=== PATIENT | female | born 1985 | race Caucasian/White ===

== ENCOUNTER 2020-12-11 10:39 | Outpatient (REF) | payer OTHER, SELFPAY ==
[2020-12-11 10:44] LABS: MANUAL DIFF FLAG NO
[2020-12-11 11:10] LABS: Basophils Absolute Auto 0.1 X10*3/uL (0.0-0.2); Basophils Percent Auto 0.7 % (0-2); Eosinophils Absolute Auto 0.2 X10*3/uL (0.0-0.4); Hematocrit 44.5 % (37.0-47.0); Hemoglobin 15.1 g/dl (12.0-16.0); Imm Gran Abs Auto 0.03 X10*3/uL (0.00-0.03); Imm Gran Pct Auto 0.4 % (0.0-0.4); Lymphocytes Absolute Auto 1.6 X10*3/uL (1.2-4.9); Lymphocytes Percent Auto 22.6 % (20-40); Mean Corpuscular HGB Conc 33.9 g/dl (31.0-35.0); Mean Corpuscular Hemoglobin 30.2 pg (27.0-33.0); Monocytes Absolute Auto 0.6 X10*3/uL (0.1-1.2); Monocytes Percent Auto 8.1 % (2-11); Neutrophils Absolute Auto 4.52 x10*3/uL (2.0-8.3); Neutrophils Percent Auto 65.2 % (45-73); Platelet Count 253 X10*3/uL (160-400); Red Cell Distribution Width 12.4 % (11.0-16.0); White Blood Count 6.9 X10*3/uL (4.8-10.8)
[2020-12-11 11:15] LABS: Appearance Urine HAZY; Color Urine YELLOW; Glucose Urine UA NEG (NEG); Leukocyte Esterase Urine NEG (NEG); Nitrite Urine NEG (NEG); Specific Gravity - Urine >= 1.030 (1.005-1.025); Urine Blood NEG (NEG); Urine Ketones NEG (NEG); Urine Protein NEG (NEG-TRACE)
[2020-12-11 11:27] LABS: Alanine Aminotransferase 27 U/L (0-31); Albumin Level 4.4 g/dL (3.5-5.0); Alkaline Phosphatase 77 U/L (39-117); Anion Gap 9 (12-20); Aspartate Amino Transferase 24 U/L (5-31); Bilirubin Total 0.3 mg/dL (0.0-1.0); Blood Urea Nitrogen 13 mg/dL (9-16); Calcium 8.9 mg/dL (8.4-10.2); Carbon Dioxide 28 mmol/L (22-29); Chloride 107 mmol/L (96-108); Cholesterol 148 mg/dL; Estimated Glomerular Filt Rate > 60; Glucose Fasting 101 mg/dL (60-99); HDL Cholesterol 41 mg/dL; LDL Cholesterol Calculated 89 mg/dl; Potassium 4.2 mmol/L (3.3-5.1); Sodium 140 mmol/L (135-145); Total Protein 6.7 g/dL (6.5-8.0); Triglycerides 94 mg/dL
== END 2020-12-11 10:40 | disposition home or self-care (01) ==
LOC: HO.LNP 10:39
PROVIDERS: Visit Provider Internal Medicine
DX: Z00.00 Encounter for general adult medical examination without abnormal findings (principal); E01.0 Iodine-deficiency related diffuse (endemic) goiter
CPT/HCPCS: 80053; 80061; 81003; 84443; 85025

== ENCOUNTER 2021-12-29 11:55 | Outpatient (REF) | payer OTHER, SELFPAY ==
[2021-12-29 11:59] LABS: MANUAL DIFF FLAG NO
[2021-12-29 12:23] LABS: Basophils Absolute Auto 0.1 X10*3/uL (0.0-0.2); Eosinophils Absolute Auto 0.2 X10*3/uL (0.0-0.4); Eosinophils Percent Auto 2.9 % (0-4); Hematocrit 43.5 % (37.0-47.0); Hemoglobin 14.6 g/dl (12.0-16.0); Imm Gran Abs Auto 0.01 X10*3/uL (0.00-0.03); Imm Gran Pct Auto 0.2 % (0.0-0.4); Lymphocytes Absolute Auto 1.7 X10*3/uL (1.2-4.9); Lymphocytes Percent Auto 27.9 % (20-40); Mean Corpuscular HGB Conc 33.6 g/dl (31.0-35.0); Mean Corpuscular Hemoglobin 29.7 pg (27.0-33.0); Mean Corpuscular Volume 88.6 fL (80.0-98.0); Mean Platelet Volume 12.2 fL (9.4-12.3); Monocytes Absolute Auto 0.5 X10*3/uL (0.1-1.2); Monocytes Percent Auto 8.5 % (2-11); Neutrophils Absolute Auto 3.7 x10*3/uL (2.0-8.3); Neutrophils Percent Auto 59.5 % (45-73); Platelet Count 245 X10*3/uL (160-400); Red Blood Count 4.91 X10*6/uL (4.20-5.50); Red Cell Distribution Width 12.4 % (11.0-16.0); White Blood Count 6.2 X10*3/uL (4.8-10.8)
[2021-12-29 12:40] LABS: Alanine Aminotransferase 18 U/L (0-31); Albumin Level 4.4 g/dL (3.5-5.0); Alkaline Phosphatase 61 U/L (39-117); Anion Gap 13 (12-20); Appearance Urine Clear; Aspartate Amino Transferase 16 U/L (5-31); Bilirubin Total 0.4 mg/dL (0.0-1.0); Blood Urea Nitrogen 12 mg/dL (9-16); Calcium 9.1 mg/dL (8.4-10.2); Carbon Dioxide 24 mmol/L (22-29); Chloride 106 mmol/L (96-108); Cholesterol 182 mg/dL; Color Urine Yellow; Estimated Glomerular Filt Rate > 60; Glucose Fasting 98 mg/dL (60-99); Glucose Urine UA Negative (Negative); HDL Cholesterol 43 mg/dL; LDL Cholesterol Calculated 113 mg/dl; Leukocyte Esterase Urine Negative (Negative); Nitrite Urine Negative (Negative); Potassium 4.1 mmol/L (3.3-5.1); Sodium 139 mmol/L (135-145); Total Protein 6.8 g/dL (6.5-8.0); Triglycerides 134 mg/dL; Urine Blood Negative (Negative); Urine Ketones Negative (Negative); Urine Protein Negative (Neg-Trace)
[2021-12-29 12:44] LABS: Bacteria Urine None Seen (None Seen); Hyaline Casts Urine 0-2 /LPF (0-2); RBC Urine 0-2 /HPF (0-2); WBC Urine 0-5 /HPF (0-5)
[2021-12-29 12:55] LABS: TSH reflex Free T4 4.27 uIU/mL (0.32-4.0)
[2021-12-29 13:38] LABS: Free T4 (Free Thyroxine) 0.88 ng/dL (0.71-1.85)
== END 2021-12-29 11:56 | disposition home or self-care (01) ==
LOC: HO.LNP 11:55
PROVIDERS: Visit Provider Internal Medicine
DX: Z00.00 Encounter for general adult medical examination without abnormal findings (principal); E01.0 Iodine-deficiency related diffuse (endemic) goiter
CPT/HCPCS: 80053; 80061; 81001; 84439; 84443; 85025

== ENCOUNTER 2022-12-24 10:53 | Outpatient (REF) | payer OTHER, SELFPAY ==
[2022-12-24 10:59] LABS: MANUAL DIFF FLAG NO
[2022-12-24 11:17] LABS: Basophils Absolute Auto 0.1 X10*3/uL (0.0-0.2); Basophils Percent Auto 1.1 % (0-2); Eosinophils Absolute Auto 0.3 X10*3/uL (0.0-0.4); Eosinophils Percent Auto 4.4 % (0-4); Hematocrit 46.4 % (37.0-47.0); Hemoglobin 15.3 g/dl (12.0-16.0); Lymphocytes Absolute Auto 1.4 X10*3/uL (1.2-4.9); Lymphocytes Percent Auto 24.9 % (20-40); Mean Corpuscular Volume 87.9 fL (80.0-98.0); Mean Platelet Volume 11.4 fL (9.4-12.3); Monocytes Absolute Auto 0.6 X10*3/uL (0.1-1.2); Monocytes Percent Auto 9.9 % (2-11); Neutrophils Absolute Auto 3.4 x10*3/uL (2.0-8.3); Neutrophils Percent Auto 59.7 % (45-73); Platelet Count 275 X10*3/uL (160-400); Red Blood Count 5.28 X10*6/uL (4.20-5.50); Red Cell Distribution Width 12.7 % (11.0-16.0); White Blood Count 5.7 X10*3/uL (4.8-10.8)
[2022-12-24 11:29] LABS: Appearance Urine Clear; Color Urine Yellow; Glucose Urine UA Negative (Negative); Leukocyte Esterase Urine Negative (Negative); Nitrite Urine Negative (Negative); PH 5.5 (5.0-9.0); Urine Blood Negative (Negative); Urine Ketones Negative (Negative); Urine Protein Negative (Neg-Trace)
[2022-12-24 12:06] LABS: Alanine Aminotransferase 70 U/L (0-31); Albumin Level 4.4 g/dL (3.5-5.0); Alkaline Phosphatase 74 U/L (39-117); Anion Gap 10 (12-20); Aspartate Amino Transferase 41 U/L (5-31); Bilirubin Total 0.3 mg/dL (0.0-1.0); Blood Urea Nitrogen 15 mg/dL (9-16); Calcium 9.1 mg/dL (8.4-10.2); Carbon Dioxide 25 mmol/L (22-29); Chloride 109 mmol/L (96-108); Cholesterol 176 mg/dL (<200); Estimated Glomerular Filt Rate > 60; Glucose Fasting 92 mg/dL (60-99); HDL Cholesterol 35 mg/dL (>40); LDL Cholesterol Calculated 110 mg/dL (<100); Potassium 4.1 mmol/L (3.3-5.1); Sodium 140 mmol/L (135-145); TSH reflex Free T4 5.15 uIU/mL (0.32-4.0); Total Protein 7.3 g/dL (6.5-8.0); Triglycerides 155 mg/dL (<150)
[2022-12-24 12:52] LABS: Free T4 (Free Thyroxine) 0.85 ng/dL (0.71-1.85)
== END 2022-12-24 10:54 | disposition home or self-care (01) ==
LOC: HO.LNP 10:53
PROVIDERS: Visit Provider Internal Medicine
DX: Z00.00 Encounter for general adult medical examination without abnormal findings (principal); E01.0 Iodine-deficiency related diffuse (endemic) goiter
CPT/HCPCS: 80053; 80061; 81003; 84439; 84443; 85025

== ENCOUNTER 2023-03-24 07:32 | Outpatient (REF) | payer OTHER, SELFPAY ==
[2023-03-24 10:43] LABS: Alanine Aminotransferase 30 U/L (0-31); Albumin Level 4.5 g/dL (3.5-5.0); Alkaline Phosphatase 61 U/L (39-117); Aspartate Amino Transferase 24 U/L (5-31); Bilirubin Direct 0.1 mg/dL (0.0-0.5); Bilirubin Total 0.5 mg/dL (0.0-1.0); Total Protein 7.3 g/dL (6.5-8.0)
== END 2023-03-24 07:33 | disposition home or self-care (01) ==
LOC: HO.10HDL 07:32
PROVIDERS: Visit Provider Internal Medicine
DX: R79.89 Other specified abnormal findings of blood chemistry (principal)
CPT/HCPCS: 36415; 80076

== ENCOUNTER 2023-07-07 10:46 | Outpatient (REF) | payer OTHER, SELFPAY ==
[2023-07-07 12:07] LABS: TSH reflex Free T4 4.44 uIU/mL (0.32-4.0)
[2023-07-07 12:46] LABS: Free T4 (Free Thyroxine) 0.83 ng/dL (0.71-1.85)
== END 2023-07-07 10:47 | disposition home or self-care (01) ==
LOC: HO.LNP 10:46
PROVIDERS: Visit Provider Internal Medicine
DX: R79.89 Other specified abnormal findings of blood chemistry (principal)
CPT/HCPCS: 84439; 84443

== ENCOUNTER 2023-12-27 12:19 | Outpatient (REF) | payer OTHER, SELFPAY ==
[2023-12-27 12:21] LABS: MANUAL DIFF FLAG NO
[2023-12-27 12:34] LABS: Basophils Absolute Auto 0.1 X10*3/uL (0.0-0.2); Eosinophils Absolute Auto 0.2 X10*3/uL (0.0-0.4); Eosinophils Percent Auto 3.5 % (0-4); Hematocrit 45.9 % (37.0-47.0); Hemoglobin 15.4 g/dl (12.0-16.0); Imm Gran Abs Auto 0.01 X10*3/uL (0.00-0.03); Imm Gran Pct Auto 0.2 % (0.0-0.4); Lymphocytes Absolute Auto 1.8 X10*3/uL (1.2-4.9); Lymphocytes Percent Auto 30.8 % (20-40); Mean Corpuscular HGB Conc 33.6 g/dl (31.0-35.0); Mean Corpuscular Hemoglobin 28.8 pg (27.0-33.0); Mean Corpuscular Volume 85.8 fL (80.0-98.0); Mean Platelet Volume 11.7 fL (9.4-12.3); Monocytes Absolute Auto 0.5 X10*3/uL (0.1-1.2); Monocytes Percent Auto 8.7 % (2-11); Neutrophils Absolute Auto 3.2 x10*3/uL (2.0-8.3); Neutrophils Percent Auto 55.8 % (45-73); Platelet Count 252 X10*3/uL (160-400); Red Blood Count 5.35 X10*6/uL (4.20-5.50); Red Cell Distribution Width 13.2 % (11.0-16.0); White Blood Count 5.7 X10*3/uL (4.8-10.8)
[2023-12-27 12:35] LABS: Appearance Urine Cloudy; Color Urine Yellow; Glucose Urine UA Negative (Negative); Leukocyte Esterase Urine Negative (Negative); Nitrite Urine Negative (Negative); PH 6.5 (5.0-9.0); Specific Gravity - Urine 1.025 (1.005-1.025); Urine Blood Negative (Negative); Urine Ketones Negative (Negative); Urine Protein Trace mg/dL (Neg-Trace)
[2023-12-27 12:57] LABS: Alanine Aminotransferase 23 U/L (0-31); Albumin Level 4.1 g/dL (3.5-5.0); Alkaline Phosphatase 69 U/L (39-117); Anion Gap 7 (12-20); Aspartate Amino Transferase 24 U/L (5-31); Bilirubin Total 0.3 mg/dL (0.0-1.0); Blood Urea Nitrogen 13 mg/dL (9-16); Calcium 9.1 mg/dL (8.4-10.2); Carbon Dioxide 28 mmol/L (22-29); Chloride 109 mmol/L (96-108); Cholesterol 168 mg/dL (<200); Estimated Glomerular Filt Rate > 60; Glucose Fasting 98 mg/dL (60-99); HDL Cholesterol 40 mg/dL (>40); LDL Cholesterol Calculated 111 mg/dL (<100); Potassium 3.7 mmol/L (3.3-5.1); Sodium 140 mmol/L (135-145); Total Protein 6.6 g/dL (6.5-8.0); Triglycerides 87 mg/dL (<150)
[2023-12-27 13:11] LABS: TSH reflex Free T4 4.99 uIU/mL (0.32-4.0)
[2023-12-27 13:18] LABS: Bacteria Urine 2+ (None Seen); Hyaline Casts Urine 0-2 /LPF (0-2); RBC Urine 0-2 /HPF (0-2); WBC Urine 0-5 /HPF (0-5)
[2023-12-27 13:59] LABS: Free T4 (Free Thyroxine) 0.91 ng/dL (0.71-1.85)
== END 2023-12-27 12:20 | disposition home or self-care (01) ==
LOC: HO.LNP 12:19
PROVIDERS: Visit Provider Internal Medicine
DX: Z00.00 Encounter for general adult medical examination without abnormal findings (principal); E01.0 Iodine-deficiency related diffuse (endemic) goiter
CPT/HCPCS: 80053; 80061; 81001; 84439; 84443; 85025

== ENCOUNTER 2024-04-06 11:16 | Outpatient (REF) | payer OTHER, SELFPAY ==
[2024-04-06 12:16] LABS: TSH reflex Free T4 4.73 uIU/mL (0.32-4.0)
[2024-04-06 12:55] LABS: Free T4 (Free Thyroxine) 0.79 ng/dL (0.71-1.85)
--- OUTSIDE RECORDS SUMMARY | 2024-04-06 13:19 | XMS_ITS ---
Author Organization [facility] Address [address] [address] Care Team Providers Care Professor Criminal Justice Name Role Phone Monty Hunter MD Primary Care Provider SHABNAM Laura Unavailable [phone] Allergies Allergen (clinical drug ingredient) Drug/Non Drug Allergy documented on EMR Reaction Allergy Type Onset Date Status Dust/Mold (uncoded) Unknown Allergy Active EPINEPHrine feels cold and feels funny Drug Allergy Active REASON FOR VISIT BREAST FEELS TENDER Medications Medication SIG (Take, Route, Frequency, Duration) Notes Start Date End Date Status Vitamin C Active Magnesium Active Multi For Her Active ProAir HFA PRN Active Kyleena Active Social History Alcohol Screen (Audit-C) Question Answer Notes Did you have a drink contain ing alcohol in the past year? Yes How often did you have a dri nk containing alcohol in the past year? 2 to 4 times a month (2 points) How many drinks did you have on a typical day when you were drinking in the past year? 1 or 2 drinks (0 point) How often did you have 6 or more drinks on one occasion in the past year? Never (0 point) Points 2 Interpretation Negative Tobacco use other than smoking: Question Answer Notes Are you an other tobacco user? No Section Notes: Nutrition: vegetarian Diet: gluten free Vital Signs Temperature 98.0 degrees Fahrenheit 09/30/19 24 Blood pressure systolic 114 mm Hg 09/30/19 24 Blood pressure diastolic 76 mm Hg 024 Height 68 in 09/30/2023 Encounters Encounter Location Date Provider Diagnosis [facility] [employer] [address] [address] 09/30/2023 SHABNAM BLACK Mastodynia N64.4 Assessments Encounter Date Diagnosis (ICD Code) Assessment Notes Treatment Notes Treatment Clinical Notes Section Notes 09/30/2023 Mastodynia (ICD-10 - N64.4) Rule out - has Kyleena IUD Discussed causes of breast tenderness including normal physiological changes related to hormonal fluctuation and muscle strain. Reviewed relief measures including analgesics, rest and local heat as needed. Discussed importance of supportive bra. Encouraged to see a bra fitting specialist to be sure of the proper fit and support. Breast self-exam is taught and encouraged Counseled on weight lossLikely due to combination of new bras, wearing bras to bed at night, and also new exercise regimen. Advised to monitor and call if doesn't spontaneously resolve or if symptoms worsen. 09/30/2023 Other Plan Of Treatment Treatment Notes Assessment Notes Mastodynia Rule out - has Kyleena IUD Discussed causes of breast tenderness including normal physiological changes related to hormonal fluctuation and muscle strain. Reviewed relief measures including analgesics, rest and local heat as needed. Discussed importance of supportive bra. Encouraged to see a bra fitting specialist to be sure of the proper fit and support. Breast self-exam is taught and encouraged Counseled on weight lossLikely due to combination of new bras, wearing bras to bed at night, and also new exercise regimen. Advised to monitor and call if doesn't spontaneously resolve or if symptoms worsen. Next Appt Details Follow Up: prn, Reason: Progress Notes * MARTHA FALLONB: 8 (38 yo F)Acc No.[id number]:09/30/2023 PROGRESS NOTES Patient:?BASILIO FALLON Provider:?SHABNAM BLACK MD :1985???Age:38 Y???Sex:Female D ate:09/30/2023 Address:[address] [place], [place] [id number] Pcp:Monty Hunter MD Subjective: * Chief Complaints: * ???BREAST FEELS TENDER * HPI: ???GEOPHYSICAL MANAGER (Problems):?Basilio is a 38 yo G0 with Kyleena IUD, here today for an urgent visit for breast tenderness. ?Breast Pain/Mass:?Date of onset:?< a week ago ?How did the problem start:?gradual ?Location:?left breast upper outer quadrant and axilla ?Pain:?mild tenderness ?Severity of pain:?mild ?Radiates:?No ?Does problem include breast mass:?No ?Onset and progress of pain or mass:?a slight decrease ?Problem is associated with:?none ?Any recent trauma to the breast??increasing her weight lifting starting last week, and reintroduced chest presses (at a lower weight than the last time she did chest presses) ?Any personal history of breast biopsy??No ?Family history of breast cancer??__ NINO had a biopsy that was benign ?Date of last mammogram?04/08/23 - small cluster of cysts along the 3 o'clock axis a few centimeters from the nipple on the left breast ? She reports she recently discarded old bras and got new ones and sometimes wears them all night.? She does not have caffeine, except the small amount in Mate tea She feels she's recently gained weight and plans to contact her PCP for a thyroid check. * ROS:?General/Constitutional:?Patient denies?fever, weight gain, weight loss.?Breast:?Patient complaining of?breast tenderness.? * Medical History:? * Spread Cutter History:?/ Para?0/0.?Sexual activity?Bisexual, currently sexually active.?Last Pap Smear:?03/19/20 ASCUS, NEG HRHPV, 03/25/17 NIL, NEG HRHPV.?Mammogram:?not due per age.?Abnormal Pap Smear:?no history of abnormal pap smears.?History of STD's:?none.? Control:?Leonor IUD placed 03/21/19.?Gardasil:?had series already.? * OB History:?Total pregnancies?0.? * Surgical History:?wisdom ryley th extraction tonsillectomy and adenoidectomy * Hospitalization/Major Diagno stic Procedure:?No Hospitalization History. * Family History:?Mother: aliv e, well, hypertension, cataracts.?Father: alive, well, hypertension, [place], ?prediabetes?, Lyme Disease.?Paternal Grand Mother: lung ca.? Sister - Mary - 1985 - well, asthma Brother - Abhijeet - 1983 - well Denies family history of breast, colon, uterine or ovarian cancers. * Social History:?Tobacco Use:?Tobacco Use/Smoking?Are you a: nonsmoker.?Tobacco use other than smoking?Are you an other tobacco user??No ???Sexual History:?Details of Sexual History?Are you sexually active??Yes ???Drugs/Alcohol:?Drugs?Have you used drugs other than those for medical reasons in the past 12 months??No ?Alcohol Screen (Audit-C)?Did you have a drink containing alcohol in the past year??Yes ?How often did you have a drink containing alcohol in the past year??2 to 4 times a month (2 points) ?How many drinks did you have on a typical day when you were drinking in the past year??1 or 2 drinks (0 point) ?How often did you have 6 or more drinks on one occasion in the past year??Never (0 point) ?Points?2 ?Interpretation?Negative ???Miscellaneous:?Caffeine: yes, frequency:, 1-2 cups per day. ?Children: no. ?Domestic violence: no. ?Exercise: yes, yoga. ?Home smoke detector use: yes, smoke detectors, carbon monoxide detector. ?Housing: renting. ?Living with: significant other. ?Marital status: single, in relationship with male partner - Carlos. ?Natural support system: yes. 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 ?Pets: 1 cat. ?Sexual abuse: no. ?Sexually active: yes. ?Travel outside of the [place]: no. ?Verbal abuse: no. ???Nutrition: vegetarian Diet: gluten free. * Medications:?TakingKyleena P roAir HFA , Notes to Pharmacist: PRNMulti For Her Magnesium Vitamin C Taking Kyleena Taking ProAir HFA , Notes to Pharmacist: PRNTaking Multi For Her Taking Magnesium Taking Vitamin C DiscontinuedFluconazole 150 MG Tablet 1 tablet PO now and in 3d Fluconazole 150 MG Tablet 1 tablet PO q3d x 3 doses, then once weekly x 6 months Clotrimazole-Betamethasone 1-0.05 % Cream 1 application Externally Twice a day Medication List reviewed and reconciled with the patientDiscontinued Fluconazole 150 MG Tablet 1 tablet PO now and in 3d Discontinued Fluconazole 150 MG Tablet 1 tablet PO q3d x 3 doses, then once weekly x 6 months Discontinued Clotrimazole-Betamethasone 1-0.05 % Cream 1 application Externally Twice a day Medication List reviewed and reconciled with the patient * Allergies:?Dust/Mold: Allerg yEPINEPHrine: feels cold and feels funny - Side Effectsno[Allergies Verified] Objective: * Vitals:?Ht: 68 in, Wt: Not T aken - Declined by Patient, BP:114/76mm Hg, Temp:98.0F. * Examination: ???General Exam: ?CONSTITUTIONAL:?General Appearance:?alert, in no acute distress, normal, well nourished EXAMINED IN UPRIGHT AND SUPINE POSITIONS ?BREAST, Right:?Inspection/Palpation:?no discharge, no masses present, no nipple retraction, no skin dimpling, no tenderness, no supra/infraclavicular adenopathy, no axillary adenopathy ?BREAST, Left:?Inspection/Palpation:?no discharge, no masses present, no nipple retraction, no skin dimpling, no tenderness, no supra/infraclavicular adenopathy, no axillary adenopathy ?SKIN:?Skin:?normal?Nipple: ?DISCHARGE:? none.?RETRACTION:? none.?ULCERATION:? none.?MASS:? none.?TENDERNESS:? none.?SWELLING:? none.?SCALING, FLAKING SKIN:? none.?Psychiatry: ?AFFECT:? appropriate.?ATTITUDE:? cooperative.?SPEECH:? clear.? Assessment: * Assessment: 1.?Mastodynia - N64.4 (Prima ry)??? Plan: * Treatment: * Procedure Codes:? * Follow Up:?prn * Images: Billing Information: * Visit Code:? 90123 Office Visit, Est Pt., Level 4. * Procedure Codes:? * Sign off status: Completed true * Provider:?SHABNAM BLACK MD Date:?2023 Generated for Edilbertoi kike/Tristin/eTransmitting on:?04/06/2024 01:19 PM EST History and Physical Notes * HPI (History of Present Illness) Category Sub-Category Detail Notes Category Not es GEOPHYSICAL MANAGER (Problems) Breast Pain/Mass: Date of onset: : < a week ago She reports she recently discarded old bras and got new ones and sometimes wears them all night. She does not have caffeine, except the small amount in Mate tea She feels she's recently gained weight and plans to contact her PCP for a thyroid check How did the problem start:: gradual Location:: left breast upper outer quadr ant and axilla Pain:: mild tenderness Severity of pain:: mild Radiates:: No Does problem include breast mass:: No Onset and progress of pain or mass:: a s light decrease Problem is associated with:: none Any recent trauma to the breast?: increa sing her weight lifting starting last week, and reintroduced chest presses (at a lower weight than the last time she did chest presses) Any personal history of breast biopsy?: No Family history of breast cancer?: __ MGM had a biopsy that was benign Date of last mammogram: 04/08/23 - small c luster of cysts along the 3 o'clock axis a few centimeters from the nipple on the left breast Examination Category Sub-Category Detail Notes Category Not es Psychiatry ATTITUDE: cooperative AFFECT: appropriate SPEECH: clear Nipple DISCHARGE: none RETRACTION: none ULCERATION: none MASS: none TENDERNESS: none SWELLING: none SCALING, FLAKING SKIN: none General Exam CONSTITUTIONAL: General Appearan ce:: alert, in no acute distress, normal, well nourished EXAMINED IN UPRIGHT AND SUPINE POSITIONS SKIN: Skin:: normal BREAST, Right: Inspection/Palpation :: no discharge, no masses present, no nipple retraction, no skin dimpling, no tenderness, no supra/infraclavicular adenopathy, no axillary adenopathy BREAST, Left: Inspection/Palpation :: no discharge, no masses present, no nipple retraction, no skin dimpling, no tenderness, no supra/infraclavicular adenopathy, no axillary adenopathy
--- OUTSIDE RECORDS SUMMARY | 2024-04-06 13:19 | XMS_ITS ---
Author Organization Monty Hunter MD Address [address] [place] [phone] Care Team Providers Care Sales Lead Generator Name Role Phone Monty Hunter Primary Care Provider [phone] REASON FOR VISIT New Refill Request Medications Medication SIG (Take, Route, Fr equency, Duration) Notes Start Date End Date Status Zolpidem Tartrate 5 MG TAKE 1 TABLET BY MOUTH EVERY DAY AT BEDTIME FOR 30 DAYS Orally Once a day for 30 days 02/13/2024 Ac tive Encounters Encounter Location Date Provider Diagnosis Monty Hunter MD [address] [place] [address] [place] [phone] 02/10/2024 Monty Hunter Plan Of Treatment Medication Medication Name Sig Start Date Stop Date Notes Zolpidem Tartrate 5 MG TAKE 1 TABLET BY MOUTH EVERY DAY AT BEDTIME FOR 30 DAYS Orally Once a day for 30 days 02/13/2024 Next Appt Details Provider Name:Monty john, 01/10/2025 07:15:00 AM, [address] [place] [address], [address], [phone], Provider Name:Monty john, 01/17/2025 08:30:00 AM, [address] [place] [address], [address], [phone], Progress Notes * Basilio GOLDSTEIN RDOB: [birth year] (38 yo F)Acc No.[id number]:02/10/2024 Patient:?Basilio Goldstein :1985???Age:38 Y???Sex:Female Address:[address] [place] [address], [place] [address] * Refills? Refill Zolpidem Tartrate Tablet, 5 MG, Orally, 30, TAKE 1 TABLET BY MOUTH EVERY DAY AT BEDTIME FOR 30 DAYS, Once a day, 30 days, Refills=0 * true * Date:? Generated for Reena stokes/Tristin/Arleneitting on:?04/06/2024 01:19 PM EST
--- OUTSIDE RECORDS SUMMARY | 2024-04-06 13:19 | XMS_ITS ---
Author Organization Monty Hunter MD Address [address] [place], [place] [phone] Care Team Providers Care Quarryman Name Role Phone Monty Hunter Primary Care Provider REASON FOR VISIT fatigue and hashimotos Encounters Encounter Location Date Provider Diagnosis Monty Hunter MD [address] [place] [phone] 04/03/2024 Monty Hunter Plan Of Treatment Next Appt Details Provider Name:Monty Alcocer ier, 01/10/2025 07:15:00 AM, [address] [place] [address], [address] [place] [address], [phone], Provider Name:Monty Alcocer ier, 01/17/2025 08:30:00 AM, [address] [place] [address], [address] [place] [address], [phone], Progress Notes * Basilio GOLDSTEIN RDOB: [birth year] (39 yo F)Acc No.[id number]:04/03/2024 Patient:?Basilio GOLDSTEIN :1985???Age:39 Y???Sex:Female Address:[address] [place], [address] * true * Date:? Generated for Reena stokes/Tristin/Arleneitting on:?04/06/2024 01:19 PM EST
--- OUTSIDE RECORDS SUMMARY | 2024-04-06 13:20 | XMS_ITS ---
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 Medications Medication SIG (Take, Route, Frequency, Duration) Notes Start Date End Date Status Vitamin C Active ProAir HFA PRN Active Kyleena Active Magnesium Active Multi For Her Active Social History Alcohol Screen (Audit-C) Question [...] vegetarian Diet: gluten free Vital Signs Temperature 99.4 degrees Fahrenheit 04/06/19 25 Blood pressure systolic 126 mm Hg 04/06/19 25 Blood pressure diastolic 78 mm Hg 025 Height 68 in 04/06/2024 refused weight Encounters Encounter Location Date Provider Diagnosis [address] [address] 04/06/2024 SHABNAM BLACK Encounter for gynecological examination (general) (routine) without abnormal findings Z01.419 and Encounter for screening for infections with a predominantly sexual mode of transmission Z11.3 Assessments Encounter Date Diagnosis (ICD Code) Assessment Notes Treatment Notes Treatment Clinical Notes Section Notes 04/06/2024 Encounter for gynecological examination (general) (routine) without abnormal findings (ICD-10 - Z01.419) During the visit, the following areas of concern were addressed: Discussed cervical cancer screening with either cytology alone every 3 years or high risk HPV co-testing every 5 years as per ASCCP guidelines. Advised continued annual pelvic exams. Patient encouraged to increase her level of exercise. SBE technique encouraged/tau ght. 04/06/2024 Encounter for screening for infections with a predominantly sexual mode of transmission (ICD-10 - Z11.3) Plan Of Treatment Treatment Notes Assessment Notes Encounter for gynecological examination (general) (routine) without abnormal findings During the visit, the following areas of concern were addressed: Discussed cervical cancer screening with either cytology alone every 3 years or high risk HPV co-testing every 5 years as per ASCCP guidelines. Advised continued annual pelvic exams. Patient encouraged to increase her level of exercise. SBE technique encouraged/taught. Next Appt Details Follow Up: 1 Year, Reason: Y early Web Application Dev Specialist Exam Progress Notes * MARTHA FALLONB: 8 (39 yo F)Acc No.[id number]:04/06/2024 PROGRESS NOTES Patient:?BASILIO FALLON Provider:?SHABNAM BLACK MD :1985???Age:39 Y???Sex:Female D ate:04/06/2024 Address:[address] [place], [place] [phone] Pcp:Monty Hunter MD Subjective: * Chief Complaints: * ???1. 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 ? She has been in state of good health since her last exam. She has the following concerns: ? She has received the [employer] Covid-19 vaccine. ? Relationship status: *partnered for nearly 4 years. They live together - feels safe at home. She is sexually active. Sexual partner(s): male. She does not wish to have STI testing. ? Menses: occasional spotting ? Contraception: Kyleena IUD - placed 03/21/2019, due for removal ? The patient has had an abnormal pap smear within the last 5 years. Her most recent pap smear was 03/21/23 - NIL, neg HR HPV. The previous pap was?03/19/20 - ASCUS, Neg HR HPV. Next due for cotesting 2028 . ? The patient does* exercise. She exercises x 3-5 days/week by spinning and strength training. She will do yoga on the weekends. * ROS:?Annual Web Application Dev Specialist Exam ROS:?Bowel habit changes?denies.?Bladder symptoms?denies.?Vaginal discharge, unusual?denies.?Vaginal itch or odor?denies.?weight or appetite changes?denies.?Chest pains, SOB?denies.?depression?denies.?Breast:?Denies?Breast lump.?Denies?Nipple discharge.?Hematology:?Denies?Swollen glands.?Skin:?Patient denies?changing moles.?Psychiatric:?Denies?Anxiety.? * Medical History:?Simple goit er, Secondary dysmenorrhea, COVID-19. * Web Application Dev Specialist History:?/ Para?0/0.?Sexual activity?Bisexual, currently sexually active.?Last Pap Smear:?03/21/23 NIL NEG HRHPV, 03/19/20 ASCUS, NEG HRHPV, 03/25/17 NIL, NEG HRHPV.?Mammogram:?not due per age.?Abnormal Pap Smear:?no history of abnormal pap smears.?LMP and menses?spotting 03/22/24.?History of STD's:?none.? Control:?Kyleena IUD placed 03/21/19.?Gardasil:?had series already.? * OB History:?Total pregnancies?0.? * Surgical History:?wisdom ryley th extraction , tonsillectomy and adenoidectomy . * Family History:?Mother: aliv e, well, hypertension, cataracts.?Father: alive, well, hypertension, [place], ?prediabetes?, Lyme Disease.?Paternal Grand Mother: lung ca.? [...] no. ???Nutrition: vegetarian Diet: gluten free. * Medications:?Taking Kyleena , Taking ProAir HFA , Notes to Pharmacist: PRN, Taking Multi For Her , Taking Magnesium , Taking Vitamin C , Medication List reviewed and reconciled with the patient * Allergies:?Dust/Mold: Allerg y, EPINEPHrine: feels cold and feels funny - Side Effects. Objective: * Vitals:?Ht: 68 in, Wt: Not T aken - Declined by Patient, BP:126/78mm Hg, Temp:99.4F. refused weight. * Examination: ???General Examination: ?GENERAL APPEARANCE:?in no acute distress,well developed, well nourished,injection molding machine tender present in room.?HEAD:?normocephalic, atraumatic.?NECK/THYROID:?neck supple, full range of motion,thyroid normal.?LYMPH NODES:?no axillary or supraclavicular adenopathy.?SKIN:?normal,good turgor,no rashes,no suspicious lesions.?BREASTS:?normal,no dimpling,no discharge,no drainage,no masses palpable bilaterally,nontender.?ABDOMEN:?soft, non-tender, non distended without masses or hepatosplenomegay.?BACK:?no costovertebral angle tenderness.?FEMALE GENITOURINARY:?Vulva without lesions or masses, vagina pink without abnormal discharge, lesions or masses, cervix appears normal and is not tender to palpation, uterus is normal size, mobile, nontender and anteverted, ovaries are not palpable.?NEUROLOGIC:?alert and oriented,gait normal.?PSYCH:?alert, oriented,cognitive function intact,cooperative with exam,good eye contact,mood/affect full range,speech clear.? Assessment: * Assessment: 1.?Encounter for gynecologic al examination (general) (routine) without abnormal findings - Z01.419 (Primary)???2.?Encounter for screening for infections with a predominantly sexual mode of transmission - Z11.3??? Plan: * Treatment: * Follow Up:?1 Year (Reason: Y early Web Application Dev Specialist Exam) * Images: Billing Information: * Visit Code:? 07016 Preventive Care Est Pt. Age 18-39. * Procedure Codes:? 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 She has been in state of good health since her last exam. She has the following concerns: She has received the Pfizer Covid-19 vaccine. Relationship status: *partnered for nearly 4 years. They live together - feels safe at home. She is sexually active. Sexual partner(s): male. She does not wish to have STI testing. Menses: occasional spotting Contraception: Kyleena IUD - placed 03/21/2019, due for removal The patient has had an abnormal pap smear within the last 5 years. Her most recent pap smear was 03/21/23 - NIL, neg HR HPV. The previous pap was 03/19/20 - ASCUS, Neg HR HPV. Next due for cotesting 2028 . The patient does* exercise. She exercises x 3-5 days/week by spinning and strength training. She will do yoga on the weekends. Examination Category Sub-Category Detail Notes Category Not es General Examination GENERAL APPEARANCE: in no ac [place] distress, well developed, well nourished, injection molding machine tender present in room HEAD: normocephalic, atrau matic NECK/THYROID: neck supple, full ra nge of motion, thyroid normal ABDOMEN: soft, non-tender, no n distended without masses or hepatosplenomegay NEUROLOGIC: alert and oriented, gait normal SKIN: normal, good turgor, no rashes, no suspicious lesions BACK: no costovertebral an gle tenderness BREASTS: normal, no dimpling, no discharge, no drainage, no masses palpable bilaterally, nontender LYMPH NODES: no axillary or supra clavicular adenopathy PSYCH: alert, oriented, cog nitive function intact, cooperative with exam, good eye contact, mood/affect full range, speech clear FEMALE GENITOURINARY: Vulva without lesi ons or masses, vagina pink without abnormal discharge, lesions or masses, cervix appears normal and is not tender to palpation, uterus is normal size, mobile, nontender and anteverted, ovaries are not palpable
--- OUTSIDE RECORDS SUMMARY | 2024-04-06 13:20 | XMS_ITS ---
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 * Medical History:? Objective: * Vitals:? Assessment: Plan: * Treatment: * Images: Billing Information: * Visit Code:? * Procedure Codes:? * Electronic signature of SHABNAM BLACK MD on 04/06/2024 at 01:20 PM EST Sign off status: Pending * Provider:?SHABNAM BLACK MD Date:?2024 Generated for Printi ng/Famarceg/eTransmitting on:?04/06/2024 01:20 PM EST
--- OUTSIDE RECORDS SUMMARY | 2024-04-06 13:20 | XMS_ITS ---
Author Organization Monty Hunter MD Address [address] [place] [phone] Care Team Providers Care Respiratory Therapy Manager Name Role Phone Monty Hunter Primary Care Provider Results Component Value Reference Range Notes TSH reflex Free T4 (Not yet reviewed by provider) Interpretation: Performing Lab:[facility], [address] [place] [phone] Notes/Report: TSH reflex Free T4 4.73 0.32-4.0 uIU/mL REASON FOR VISIT TSH Encounters Encounter Location Date Provider Diagnosis Monty Hunter MD [address] [place] [address] [place] [phone] 04/06/2024 Monty Hunter Fatigue R53.83 Assessments Encounter Date Diagnosis (ICD Code) Assessment Notes Treatment Notes Treatment Clinical Notes Section Notes 04/06/2024 Fatigue (ICD-10 - R53.83) Plan Of Treatment Pending Test Test Name Order Date TSH reflex Free T4 04/06/2024 Next Appt Details Provider Name:Monty john, 01/10/2025 07:15:00 AM, [address] [place] [address], [phone], Provider Name:Monty john, 01/17/2025 08:30:00 AM, [address] [place], [place] [address], [phone], Progress Notes * Basilio GOLDSTEIN RDOB: [birth year] (39 yo F)Acc No.[id number]:04/06/2024 Progress Note Patient:Basilio DAVALOS Provider:?Monty Hunter MD :1985???Age:39 Y???Sex:Female D ate:04/06/2024 Address:[address] [facility] Subjective: * Chief Complaints: * ???1. TSH. * Medical History:? Objective: * Vitals:? Assessment: * Assessment: 1.?Fatigue - R53.83??? Plan: * Treatment: * Procedure Codes:?21732 VENIP UNCT, ROUTINE* * * The named appointment provid er may or may not be the originator of this progress note, and it is not deemed complete until electronically signed by the appointment provider. Sign off status: Pending * Provider:?Monty Hunter MD Date:?0 04/06/2024 Generated for Reena stokes/Tristin/Arleneitting on:?04/06/2024 01:20 PM EST
--- OUTSIDE RECORDS SUMMARY | 2024-04-06 13:20 | XMS_ITS | Patient Health Record ---
Author Organization Monty Hunter MD Address [address] [place], [place] [id number] Care Team Providers Care Mini Lab Operator Name Role Phone Monty Hunter Primary Care Provider Allergies No Known Allergies Results Component Value Reference Range Notes TSH reflex Free T4 Reviewed date:07/07/2023 04:46:33 PM Interpretation: Performing Lab:[address] [phone] Notes/Report: TSH reflex Free T4 4.44 0.32-4.0 uIU/mL Complete Blood Count Auto Di ff Reviewed date:12/27/2023 08:13:00 PM Interpretation: Performing Lab:[address] [phone] Notes/Report: White Blood Count 5.7 4.8-10.8 X10*3/uL Red Blood Count 5.35 4.20-5.50 X10*6/uL Hemoglobin 15.4 12.0-16.0 g/dl Hematocrit 45.9 37.0-47.0 % Mean Corpuscular Volume 85.8 80.0-98.0 fL Mean Corpuscular Hemoglobin 28.8 27.0-33.0 pg Mean Corpuscular HGB Conc 33.6 31.0-35.0 g/dl Red Cell Distribution Width 13.2 11.0-16.0 % Platelet Count 252 160-400 X10*3/uL Mean Platelet Volume 11.7 9.4-12.3 fL Neutrophils Percent Auto 55.8 45-73 % Imm Gran Pct Auto 0.2 0.0-0.4 % Lymphocytes Percent Auto 30.8 20-40 % Monocytes Percent Auto 8.7 2-11 % Eosinophils Percent Auto 3.5 0-4 % Basophils Percent Auto 1.0 0-2 % NRBC Pct Auto 0.0 0.0-0.2 /100WBC Neutrophils Absolute Auto 3.2 2.0-8.3 x10*3/u L Imm Gran Abs Auto 0.01 0.00-0.03 X10*3/uL Lymphocytes Absolute Auto 1.8 1.2-4.9 X10*3/u L Monocytes Absolute Auto 0.5 0.1-1.2 X10*3/uL Eosinophils Absolute Auto 0.2 0.0-0.4 X10*3/u L Basophils Absolute Auto 0.1 0.0-0.2 X10*3/uL NRBC Abs Auto 0.000 0.0-0.012 X10*3/uL Comprehensive [place]. Panel Fa st Reviewed date:12/27/2023 08:10:32 PM Interpretation: Performing Lab:[facility], [address] [place] [phone] Notes/Report: Sodium 140 135-145 mmol/L Potassium 3.7 3.3-5.1 mmol/L Chloride 109 96-108 mmol/L Carbon Dioxide 28 22-29 mmol/L Anion Gap 7 12-20 Blood Urea Nitrogen 13 9-16 mg/dL Creatinine 0.76 0.5-1.4 mg/dL Estimated Glomerular Filt Rate > 60 Chronic Kidney Disease: Estimated GFR < 60 mL/min/1.73m2 Severe Kidney Disease: Estimated GFR < 15 mL/min/1.73m2 Glucose Fasting 98 60-99 mg/dL Calcium 9.1 8.4-10.2 mg/dL Bilirubin Total 0.3 0.0-1.0 mg/dL Aspartate Amino Transferase 24 5-31 U/L Alanine Aminotransferase 23 0-31 U/L Total Protein 6.6 6.5-8.0 g/dL Albumin Level 4.1 3.5-5.0 g/dL Alkaline Phosphatase 69 39-117 U/L Lipid Panel Reviewed date:12/27/2023 08:10:57 PM Interpretation: Performing Lab:[facility], [address] [place] [phone] Notes/Report: Triglycerides 87 <150 mg/dL Desirable Triglyceride: less than 150 mg/dL Borderline High Triglyceride 150-199 mg/dL High Triglyceride: 200-499 mg/dL Very High Triglyceride: greater than or equal to 5OO mg/dL Cholesterol 168 <200 mg/dL Desirable Cholesterol: less than 200 mg/dL Borderline High Cholesterol: 200-239 mg/dL High Cholesterol: greater than 239 mg/dL LDL Cholesterol Calculated 111 <100 mg/dL Desirable LDL: less than 100 mg/dL Near Optimal/Above Optimal LDL: 110-129 mg/dL Borderline High LDL: 130-159 mg/dL High LDL: 160-189 mg/dL Very High LDL: greater than or equal to 190 mg/dL HDL Cholesterol 40 >40 mg/dL Desirable HDL: greater than 40 mg/dL Note: This HDL assay may give artificially low results in patients with liver disease. TSH reflex Free T4 Reviewed date:12/27/2023 08:10:40 PM Interpretation: Performing Lab:[facility], [address] [place] [phone] Notes/Report: TSH reflex Free T4 4.99 0.32-4.0 uIU/mL UA ClnCatch+Micro w/rflx Cul t Reviewed date:12/27/2023 08:16:33 PM Interpretation: Performing Lab:[facility], [address] [place] [phone] Notes/Report: Urine, Clean Catch Color Urine Yellow Appearance Urine Cloudy PH 6.5 5.0-9.0 Glucose Urine UA Negative Negative mg/dL Urine Blood Negative Negative Specific [place] - Urine 1.025 1.005-1.025 Urine Protein Trace Neg-Trace mg/dL Urine Ketones Negative Negative mg/dL Nitrite Urine Negative Negative Leukocyte Esterase Urine Negative Negative RBC Urine 0-2 0-2 /HPF WBC Urine 0-5 0-5 /HPF Squamous Epithelial Cell Urine 11-20 0-2 /HPF Bacteria Urine 2+ None Seen Hyaline Casts Urine 0-2 0-2 /LPF TSH reflex Free T4 (Not yet reviewed by provider) Interpretation: Performing Lab:[facility], [address] [place] [phone] Notes/Report: TSH reflex Free T4 4.73 0.32-4.0 uIU/mL Free T4 (Free Thyroxine) Reviewed date:07/07/2023 04:49:10 PM Interpretation: Performing Lab:[facility], [address] [place] [phone] Notes/Report: Free T4 (Free Thyroxine) 0.83 0.71-1.85 ng/dL Hold Gold Reviewed date:07/07/2023 12:37:12 PM Interpretation: Performing Lab:[facility], [address] [place] [phone] Notes/Report: Hold Gold See Note Specimen held untested for 24 hours; Call to request Chemistry testing. Free T4 (Free Thyroxine) Reviewed date:12/27/2023 08:11:31 PM Interpretation: Performing Lab:[facility], [address] [place] [phone] Notes/Report: Free T4 (Free Thyroxine) 0.91 0.71-1.85 ng/dL Hold Gold Reviewed date:12/27/2023 08:12:32 PM Interpretation: Performing Lab:[facility], [address] [place] [phone] Notes/Report: Hold Gold See Note Specimen held untested for 24 hours; Call to request Chemistry testing. Free T4 (Free Thyroxine) (No t yet reviewed by provider) Interpretation: Performing Lab:[facility], [address] [place] [phone] Notes/Report: Free T4 (Free Thyroxine) 0.79 0.71-1.85 ng/dL Hold Gold Reviewed date:04/06/2024 12:35:25 PM Interpretation: Performing Lab:[facility], [address] [place] [phone] Notes/Report: Hold Gold See Note Specimen held untested for 24 hours; Call to request Chemistry testing. Reason For Referral Reason thyromegaly Diagnosis 1 Thyromegaly (E01.0) Referral Organization Monty Hunter MD Referring Provider First Name Monty Referring Provider Last Name Dale Referring Provider Speciality Internal M edicine Referred Provider Wilbur Nair Referred Provider Specialty Endocrinolog y General Notes Myrna Ricardo 11:26:37 AM EDT > info faxed , Myrna Ricardo 07/21/2023 12:56:18 PM EDT > was told referral is being reviewed, was told to call back next week , Myrna Ricardo 07/22/2023 09:31:17 AM EDT > spoke with patient she doesn't want to go to [facility] endo, wants to go to [facility] info was faxed [phone], Myrna Ricardo 08/18/2023 02:53:57 PM EDT > not able to leavbe a message info mailed to patient Referral Priority Routine Referral Appointment Date 10/27/2023 Medications Medication SIG (Take, Route, Frequency, Duration) Notes Start Date End Date Status Zolpidem Tartrate 5 MG TAKE 1 TABLET BY MOUTH EVERY DAY AT BEDTIME FOR 30 DAYS Orally Once a day for 30 days 02/13/2024 Active PARoxetine HCl 10 MG 1 tablet in the mor yuval Orally Once a day for 90 days 03/26/2021 Not-Taking Amoxicillin-Pot Clavulanate 875-125 MG 1 tablet Orally every 12 hrs for 10 day(s) 09/06/2022 Not-Taking Advair Diskus 500-50 MCG/ACT 1 puff Inhalation Twice a day for 30 days 01/20/2023 Not-Taking Albuterol Sulfate HFA 108 (90 Base) MCG/ACT INHALE 2 PUFFS EVERY 4 HOURS NEEDED Inhalation every 4 hrs Active Kyleena 19.5 MG as directed Intrauterine Active Immunizations Vaccine Route Administration Date Status Comme nts TDaP IM Intramuscular 08/15/2017 [facility]. Tetanus Unknown 08/15/2017 Administered Fluarix Quadrivalent IM Intramuscular 03/21/2019 Adminghazale red Pt was given the vaccine at [facility]. Fluarix Quadrivalent Unknown 01/23/2020 Administered [facility] SARS-COV-2 Pfizer Unknown 03/12/2020 Administered SARS-COV-2 Pfizer Unknown 04/02/2020 Administered Fluarix Quadrivalent IM Intramuscular 12/11/2020 Administe red Fluarix Quadrivalent Unknown 04/22/2016 Refused Fluarix Quadrivalent Unknown 04/12/2017 Refused Social History Tobacco Use: Social History Observation Description Date Details (start date - stop date) Never Smoker NA - NA Tobacco Use/Smoking Question Answer Notes Patient is a nonsmoker Additional Findings: Tobacco Non-User Cu rrent non-smoker, currently using no form of tobacco Alcohol Screen Question Answer Notes Did you have a drink contain ing alcohol in the past year? Yes How often did you have a dri nk containing alcohol in the past year? Monthly or less (1 point) How many drinks did you have on a typical day when you were drinking in the past year? 1 or 2 drinks (0 point) How often did you have 6 or more drinks on one occasion in the past year? Never (0 point) Points 1 Interpretation Negative Problems Problem Type SNOMED Code ICD Code Onset Dates Problem Status W/U Status Risk Notes Problem 0824358 Primary insomnia (F51.01) Active confirmed Problem 590092807 Mild intermitten t asthma without complication (J45.20) Active confirmed Problem 60980810 Thyromegaly (E01.0) Active confirmed Problem 558640583 BMI 32.0-32.9,adult (Z68.32) Active confirmed Problem 078111305 Mild intermitten t asthmatic bronchitis with acute exacerbation (J45.21) Active confirmed Problem 724609465 Pollen allergies (J30.1) Active confirmed Problem Obsessive-comp ulsive disorder (768713397) Obsessive thinking (F42.8) Active confirmed Vital Signs Blood pressure diastolic 78 mm Hg 01/13/2024 pat ient refused weight Height 68 in 01/13/2024 patient refused weight Blood pressure systolic 112 mm Hg 01/13/2024 maury ent refused weight Encounters Encounter Location Date Provider Diagnosis Monty Hunter MD [address] [place] [id number] 07/07/2023 Monty Hunter LFT elevation R79.89 Monty Hunter MD [address] [place] [id number] 12/27/2023 Monty Hunter Blood tests for routine general physical examination Z00.00 and Thyromegaly E01.0 Monty Hunter MD [address] [place] [id number] 04/06/2024 Monty Hunter Fatigue R53.83 Monty Hunter MD [address] [place] [id number] 07/15/2023 Monty Hunter Thyromegaly E01.0 an d Enlargement of tongue K14.8 Monty Hunter MD [address] [place] [id number] 01/13/2024 Monty Hunter Thyromegaly E01.0 ; Annual physical exam Z00.00 ; Mild intermittent asthmatic bronchitis with acute exacerbation J45.21 and Depression screening Z13.31 Monty Hunter MD [address] [place] [id number] 04/26/2023 Monty Hunter Pain in right hip M25.551 and Pain in left hip M25.552 Monty Hunter MD [address] [place] [id number] 04/26/[address] [place] [id number] 07/18/2023 Monty Hunter MD [address] [place] [id number] 02/10/2024 [address]ty [address] MD [address] [place] [id number] 04/03/2024 Monty Hunter Assessments Encounter Date Diagnosis (ICD Code) Assessment Notes Treatment Notes Treatment Clinical Notes Section Notes 07/07/2023 LFT elevation (ICD-10 - R79.89) 12/27/2023 Blood tests for routine general physical examination (ICD-10 - Z00.00) 12/27/2023 Thyromegaly (ICD-10 - E01.0) 04/06/2024 Fatigue (ICD-10 - R53.83) 07/15/2023 Thyromegaly (ICD-10 - E01.0) refer back to endocrine 07/15/2023 Enlargement of tongue (ICD-10 - K14.8) may be related to thyroid/ has no symptoms of acromegaly 01/13/2024 Thyromegaly (ICD-10 - E01.0) followed by dr del rosario 01/13/2024 Annual physical exam (ICD-10 - Z00.00) labs reviewed and discussed with patent 04/26/2023 Pain in right hip (ICD-10 - M25.551) 04/26/2023 Pain in left hip (ICD-10 - M25.552) 01/13/2024 Mild intermittent asthmatic bronchitis with acute exacerbation (ICD-10 - J45.21) not having any problems, will continue current regiment 01/13/2024 Depression screening (ICD-10 - Z13.31) negative screen Plan Of Treatment Pending Test Test Name Order Date Free T4 (Free Thyroxine) 04/06/2024 TSH reflex Free T4 04/06/2024 XR hips SANIYA min 3V 04/26/2023 Next Appt Details Provider Name:Monty Alcocer ier, 01/10/2025 07:15:00 AM, [address] [place] [address], [place] [address], [place], [place], [phone], Provider Name:Monty Alcocer ier, 01/17/2025 08:30:00 AM, [address] [place] [address], [place] [address], [place], [place], [phone], Insurance Providers Payer Name Payer Address Payer Phone Subscriber Number Group Number Insured Name Patient Relationship to Insured Coverage Start Date Coverage End Date [facility] [address] [facility] [address] [place] [phone] [id number] Basilio Goldstein Self - patient is the insured Medical (General) History Medical History History ICD Code 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
--- OUTSIDE RECORDS SUMMARY | 2024-04-06 13:20 | XMS_ITS | Patient Health Record ---
Author Organization [facility] Address [address] [place] [address] Care Team Providers Care Goring Cutter Name Role Phone Dale PETERSON, Monty Primary Care Provider SHABNAM Laura Unavailable [phone] Allergies Allergen (clinical drug ingredient) Drug/Non Drug Allergy documented on EMR Reaction Allergy Type Onset Date Status Dust/Mold (uncoded) Unknown Allergy Active EPINEPHrine feels cold and feels funny Drug Allergy Active Reason For Referral No Information Medications Medication SIG (Take, Route, Frequency, Duration) [...] an other tobacco user? 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, 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 NUTRITION: vegetarian DIET: gluten free EXERCISE: yoga SEXUAL ACTIVITY: Sexually active with one partner, together for one year CONTRACEPTION: OCP .CE: Smoking: Never a smoker TOBACCO EXPOSURE: Smoker in home (smokes outside) .CE: ALCOHOL: occasional glass of wine TEXT MESSAGING WHILE DRIVING: no SUNSCREEN: yes ILLICIT DRUGS: occ marijuana SEATBEALT: yes MARITAL STATUS: Single CHILDREN: none LIVES WITH: room-mate PETS: 1 CAT 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, 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 NUTRITION: vegetarian DIET: gluten free EXERCISE: yoga SEXUAL ACTIVITY: Sexually active with one partner, together for one year CONTRACEPTION: Mirena IUD Smoking: Never a smoker TOBACCO EXPOSURE: Smoker in home (smokes outside) ALCOHOL: occasional glass of wine TEXT MESSAGING WHILE DRIVING: no SUNSCREEN: yes ILLICIT DRUGS: occ marijuana SEATBEALT: yes Nutrition: vegetarian Diet: gluten free Nutrition: vegetarian Diet: gluten free Nutrition: vegetarian Diet: gluten free Nutrition: vegetarian Diet: gluten free Nutrition: vegetarian Diet: gluten free Nutrition: vegetarian Diet: gluten free Nutrition: vegetarian Diet: gluten free Nutrition: vegetarian Diet: gluten free Nutrition: vegetarian Diet: gluten free Nutrition: vegetarian Diet: gluten free Nutrition: vegetarian Diet: gluten free Nutrition: vegetarian Diet: gluten free Nutrition: vegetarian Diet: gluten free Nutrition: vegetarian Diet: gluten free Nutrition: vegetarian Diet: gluten free Nutrition: vegetarian Diet: gluten free Nutrition: vegetarian Diet: gluten free Problems Problem Type SNOMED Code ICD Code Onset Dates Problem Status W/U Status Risk Notes Problem 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, unspecified (E04.9) Active confirmed Problem Subacute and chronic vaginitis (N76.1) Active confirmed Problem COVID-19 (066138060) COVID-19 (U07.1) Active confirmed Problem Dysmenorrhea (617963949) Dysmenorrhea (625.3) Active confirmed Diag Vital Signs Temperature 99.4 degrees Fahrenheit 04/06/2024 refu sed weight Blood pressure diastolic 78 mm Hg 04/06/2024 ref used weight Height 68 in 04/06/2024 refused weight Blood pressure systolic 126 mm Hg 04/06/2024 refu sed weight Encounters Encounter Location Date [facility] [address] [place] [address] 04/06/2024 SHABNAM BLACK Encounter for gynecological examination (general) (routine) without abnormal findings Z01.419 and Encounter for screening for infections with a predominantly sexual mode of transmission Z11.3 [facility] [address] [place] [address] 09/30/2023 SHABNAM BLAKC Mastodynia N64.4 Assessments Encounter Date Diagnosis (ICD [...] doesn't spontaneously resolve or if symptoms worsen. 04/06/2024 Encounter for gynecological examination (general) (routine) without abnormal findings (ICD-10 - Z01.419) During the visit, the following areas of concern were addressed: Discussed cervical cancer screening with either cytology alone every 3 years or high risk HPV co-testing every 5 years as per ASCCP guidelines. Advised continued annual pelvic exams. Patient encouraged to increase her level of exercise. SBE technique encouraged/taught . 04/06/2024 Encounter for screening for infections with a predominantly sexual mode of transmission (ICD-10 - Z11.3) 09/30/2023 Other Plan Of Treatment Pending Test Test Name Order Date Test, Urine 03/21/2019 Urinalysis 05/07/2020 THIN PREP,HPV,LISA IF HPV+ (>29YR)(DIAG) 03/19/2020 THIN PREP,HPV,LISA IF HPV+/CYT- (>29YR)( SCRN) 03/25/2017 PELVIC ULTRASOUND W/TRANSVAGINAL 020 ULTRASOUND: PELVIC W/TRANSVAGINAL 2020 DIAGNOSTIC BILATERAL MAMMOGRAM, W/LT SHAINA AST ULTRASOUND 03/21/2023 Future Test Test Name Order Date ULTRASOUND: PELVIC W/TRANSVAGINAL 2021 Insurance Providers Payer Name Payer Address Payer Phone Subscriber Number Group Number Insured Name Patient Relationship to Insured Coverage Start Date Coverage End Date [facility] [address] [place] [address] [id number] JACKI FLALON Self - patient is the insured Medical (General) History Medical History History ICD Code Simple goiter Secondary dysmenorrhea N94.5 COVID-19 U07.1 Surgical History Surgery Date(Month/Year) wisdom teeth extraction tonsillectomy and adenoidectomy Hospitalization History Reason Date(Month/Year)
== END 2024-04-06 11:17 | disposition home or self-care (01) ==
LOC: HO.LNP 11:16
PROVIDERS: Visit Provider Internal Medicine
DX: R53.83 Other fatigue (principal)
CPT/HCPCS: 84439; 84443

== ENCOUNTER 2025-01-10 11:31 | Outpatient (REF) | payer OTHER, SELFPAY ==
[2025-01-10 11:34] LABS: MANUAL DIFF FLAG NO
[2025-01-10 11:41] LABS: Appearance Urine Clear; Glucose Urine UA Negative (Negative); Hematocrit 47.2 % (37.0-47.0); Hemoglobin 15.9 g/dl (12.0-16.0); Imm Gran Abs Auto 0.02 X10*3/uL (0.00-0.03); Imm Gran Pct Auto 0.3 % (0.0-0.4); Lymphocytes Absolute Auto 1.7 X10*3/uL (1.2-4.9); Mean Corpuscular HGB Conc 33.7 g/dl (31.0-35.0); Mean Corpuscular Hemoglobin 29.3 pg (27.0-33.0); Mean Corpuscular Volume 87.1 fL (80.0-98.0); NRBC Abs Auto 0.000 X10*3/uL (0.0-0.012); NRBC Pct Auto 0.0 /100WBC (0.0-0.2); PH 5.5 (5.0-9.0); Platelet Count 246 X10*3/uL (160-400); Red Blood Count 5.42 X10*6/uL (4.20-5.50); Specific Gravity - Urine 1.025 (1.005-1.025); White Blood Count 7.0 X10*3/uL (4.8-10.8)
[2025-01-10 12:26] LABS: Alanine Aminotransferase 66 U/L (0-31); Albumin Level 4.5 g/dL (3.5-5.0); Alkaline Phosphatase 69 U/L (39-117); Anion Gap 10 (12-20); Aspartate Amino Transferase 33 U/L (5-31); Blood Urea Nitrogen 13 mg/dL (9-16); Calcium 9.2 mg/dL (8.4-10.2); Carbon Dioxide 23 mmol/L (22-29); Chloride 111 mmol/L (96-108); Cholesterol 184 mg/dL (<200); Estimated Glomerular Filt Rate > 60; HDL Cholesterol 42 mg/dL (>40); Potassium 4.1 mmol/L (3.3-5.1); Sodium 140 mmol/L (135-145); Total Protein 6.9 g/dL (6.5-8.0); Triglycerides 100 mg/dL (<150)
[2025-01-10 13:57] LABS: Free T4 (Free Thyroxine) 0.85 ng/dL (0.71-1.85)
== END 2025-01-10 11:32 | disposition home or self-care (01) ==
LOC: HO.LNP 11:31
PROVIDERS: Visit Provider Internal Medicine
DX: Z00.00 Encounter for general adult medical examination without abnormal findings (principal); E01.0 Iodine-deficiency related diffuse (endemic) goiter; Z13.6 Encounter for screening for cardiovascular disorders
CPT/HCPCS: 80053; 80061; 81001; 84439; 84443; 85025